=== PATIENT | male | born 1995 | race Caucasian/White ===

== ENCOUNTER 2016-11-11 12:31 | Emergency (ER) | payer OTHER ==
--- NOTE | 2016-11-11 13:40 | EDDOCDS ---
Physician Documentation [facility] Name: Ricky Young Age: 20 yrs Sex: Male : 1995 Arrival Date: 11/11/2016 Time: 12:31 Bed Triage 2 Private MD: Cj Mcgovern Disposition: 11/11/16 13:35 Discharged to Home/Self Care. Impression: Local infection of the skin and subcutaneous tissue, unspecified - Left Great Toe Paronychia. - Condition is Stable. - Prescriptions for Keflex 500 mg Oral Capsule - take 1 capsule by ORAL route every 8 hours for 10 days; 30 capsule. Naprosyn 500 mg Oral Tablet - take 1 tablet by ORAL route 2 times per day take with food; 30 tablet. - Medication Reconciliation, Local Pharmacy Hours form. - Follow up: Cj Mcgovern; When: 1 - 2 days; Reason: Recheck today's complaints, Continuance of care. Follow up: Emergency Department; Reason: Worsening of conditions. - Problem is new. - Symptoms are unchanged. Historical: - Allergies: no known allergies; - Home Meds: 1. none - PMHx: GERD; - PSHx: none; - Social history: Smoking status: Patient states was never smoker of tobacco. No barriers to communication noted, The patient speaks fluent Uzbek, Speaks appropriately for age. - Family history: Not pertinent. - : The pt / caregiver states he / she is not on anticoagulants. Home medication list is obtained from the patient. - Exposure Risk Screening:: None identified. Vital Signs: 11/11 12:33 BP 108 / 67 RA Sitting (auto/reg); Pulse 89; Resp 18; Temp 98.1(O); Pulse Ox 100% on jrd R/A; Weight 45.36 kg / 100 lbs (R); Height 5 ft. 2 in. (157.48 cm); Pain 3/10; 12:33 Body Mass Index 18.29 (45.36 kg, 157.48 cm) jrd Signatures: Kinga Yung PA-C PA-C ef1 Tameka Seymour,RN RN pml Joceline MárquezRN RN js13 MTDD
--- NOTE | 2016-11-11 13:40 | EDDOCDS ---
Nurse's Notes [facility] Name: Ricky Young Age: 20 yrs Sex: Male : 1995 Arrival Date: 11/11/2016 Time: 12:31 Bed Triage 2 Private MD: Cj Mcgovern Diagnosis: Local infection of the skin and subcutaneous tissue, unspecified-Left Great Toe Paronychia Presentation: 11/11 12:35 Presenting complaint: Friend states: redness and swelling to toe for about a month. [facility] Adult Sepsis Screening: The patient does not have new or worsening altered mentation. Patient's respiratory rate is less than 22. Systolic blood pressure is greater than 100. Patient has a qSOFA score of 0- Negative Sepsis Screen. Suicide/Homicide risk assessment- the patient denies having any suicidal and/or homicidal ideations and does not present with any other emotional, behavioral or mental health complaints. Status: Patient is not a atm servicer or dependent. Transition of care: patient was not received from another setting of care. 12:35 Acuity: EVELYN Level 5 [facility] 12:35 Method Of Arrival: Walkin/Carried/Asstd [facility] Triage Assessment: 12:36 General: Appears in no apparent distress, comfortable. Pain: Location: Left first pml toenail Pain currently is 3 out of 10 on a pain scale. HIV screening NA for this visit Offered previously. Historical: - Allergies: no known allergies; - Home Meds: 1. none - PMHx: GERD; - PSHx: none; - Social history: Smoking status: Patient states was never smoker of tobacco. No barriers to communication noted, The patient speaks fluent Estonian, Speaks appropriately for age. - Family history: Not pertinent. - : The pt / caregiver states he / she is not on anticoagulants. Home medication list is obtained from the patient. - Exposure Risk Screening:: None identified. Screenin:36 Screening information is obtained from the patient. Fall risk: No risks identified. js13 Assistance ADL's: requires no assistance with activities of daily living. Abuse/DV Screen: The patient / caregiver reports he/she is: not in a situation that causes fear, pain or injury. Nutritional screening: No deficits noted. Advance Directives: There is no active DNR order. home support is adequate. Vital Signs: 12:33 BP 108 / 67 RA Sitting (auto/reg); Pulse 89; Resp 18; Temp 98.1(O); Pulse Ox 100% on jrd R/A; Weight 45.36 kg (R); Height 5 ft. 2 in. (157.48 cm); Pain 3/10; 12:33 Body Mass Index 18.29 (45.36 kg, 157.48 cm) jrd Vitals: 12:33 Log In Time: November 11, 2016 at 12:10. jrd ED Course: 12:32 Patient visited by Jim Parker PCA. jrd 12:32 Patient moved to Waiting jrd 12:33 Cj Mcgovern is Private Physician. jrd 12:34 Patient visited by Jim Parker PCA. jrd 12:34 Patient moved to Pre RCE jrd 12:35 Triage Initiated pml 12:36 Patient visited by Tameka Seymour RN. pml 12:58 Patient moved to Triage 2 ml6 13:18 Kinga Yung PA-C [facility]. ef1 13:18 Traci Medina MD is Attending Physician. ef1 13:18 Patient visited by Kinga Yung PA-C. ef1 13:35 Cj Mcgovern is Referral Physician. ef1 13:36 The patient / caregiver is instructed regarding the plan of care and ED course. js13 13:36 No IV's were initiated during this patient's visit. No procedures done that require js13 assistance. Order Results: There are currently no results for this order. Outcome: 13:35 Discharge ordered by Provider. ef1 13:36 Discharge Assessment: Patient awake, alert and oriented x 3. No cognitive and/or js13 functional deficits noted. Patient verbalized understanding of disposition instructions. patient administered narcotics - no. The following High Risk Discharge criteria are identified: None. Discharged to home ambulatory, with friend. Condition: stable. 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 medication usage, Demonstrated understanding of instructions, medications, Pt was receptive of discharge instructions/ teaching. Prescriptions given X 2. No special radiology studies were completed. Property :Personal belongings accompany Pt. 13:39 Patient left the ED. js13 Signatures: Kinga Yung PA-C PA-C ef1 Shimon Arredondo RN RN ml6 Tameka Seymour RN RN pml Joceline Márquez,RN RN js13 Jim Parker, RESTORATIVE CARE TECHNICIAN RESTORATIVE CARE TECHNICIAN jrd MTDD
--- NOTE | 2016-11-13 14:40 | EDDOCDS ---
Physician Documentation [facility] Name: Ricky Young Age: 20 yrs Sex: Male : 1995 Arrival Date: 11/11/2016 Time: 12:31 Bed Triage 2 Private MD: Cj Mcgovern Disposition: 11/11/16 13:35 Discharged to Home/Self Care. Impression: Local infection of the skin and subcutaneous tissue, unspecified - Left Great Toe Paronychia. - Condition is Stable. - Prescriptions for Keflex 500 mg Oral Capsule - take 1 capsule by ORAL route every 8 hours for 10 days; 30 capsule. Naprosyn 500 mg Oral Tablet - take 1 tablet by ORAL route 2 times per day take with food; 30 tablet. - Medication Reconciliation, Local Pharmacy Hours form. - Follow up: Cj Mcgovern; When: 1 - 2 days; Reason: Recheck today's complaints, Continuance of care. Follow up: Emergency Department; Reason: Worsening of conditions. - Problem is new. - Symptoms are unchanged. Historical: - Allergies: no known allergies; - Home Meds: 1. none - PMHx: GERD; - PSHx: none; - Social history: Smoking status: Patient states was never smoker of tobacco. No barriers to communication noted, The patient speaks fluent Tongan, Speaks appropriately for age. - Family history: Not pertinent. - : The pt / caregiver states he / she is not on anticoagulants. Home medication list is obtained from the patient. - Exposure Risk Screening:: None identified. Vital Signs: 11/11 12:33 BP 108 / 67 RA Sitting (auto/reg); Pulse 89; Resp 18; Temp 98.1(O); Pulse Ox 100% on jrd R/A; Weight 45.36 kg / 100 lbs (R); Height 5 ft. 2 in. (157.48 cm); Pain 3/10; 12:33 Body Mass Index 18.29 (45.36 kg, 157.48 cm) jrd MDM: 13:46 Financial registration complete. mm15 13:46 [facility] Payment Agreement was scanned into [employer] and attached to record. mm15 14:48 T-Sheet-- Draft Copy was scanned into [employer] and attached to record. gb Signatures: Yolie Grant, Reg Reg gb Kinga Yung, PA-C PA-C ef1 Tameka Seymour,RN RN pml Joceline MárquezRN RN js13 Taran Gomez mm15 The chart was reviewed and I authenticate all verbal orders and agree with the evaluation and treatment provided.Attachments: 13:46 [facility] Payment Agreement mm15 14:48 T-Sheet-- Draft Copy gb Chart Complete MTDD
--- NOTE | 2016-11-13 14:40 | EDDOCDS ---
Nurse's Notes [facility] Name: Ricky Young Age: 20 yrs Sex: Male : 1995 Arrival Date: 11/11/2016 Time: 12:31 Bed Triage 2 Private MD: Cj Mcgovern Diagnosis: Local infection of the skin and subcutaneous tissue, unspecified-Left Great Toe Paronychia Presentation: 11/11 12:35 Presenting complaint: Friend states: redness and swelling to toe for about a month. [facility] Adult Sepsis Screening: The patient does not have new or worsening altered mentation. Patient's respiratory rate is less than 22. Systolic blood pressure is greater than 100. Patient has a qSOFA score of 0- Negative Sepsis Screen. Suicide/Homicide risk assessment- the patient denies having any suicidal and/or homicidal ideations and does not present with any other emotional, behavioral or mental health complaints. Status: Patient is not a family service center director or dependent. Transition of care: patient was not received from another setting of care. 12:35 Acuity: EVELYN Level 5 [facility] 12:35 Method Of Arrival: Walkin/Carried/Asstd [facility] Triage Assessment: 12:36 General: Appears in no apparent distress, comfortable. Pain: Location: Left first pml toenail Pain currently is 3 out of 10 on a pain scale. HIV screening NA for this visit Offered previously. Historical: - Allergies: no known allergies; - Home Meds: 1. none - PMHx: GERD; - PSHx: none; - Social history: Smoking status: Patient states was never smoker of tobacco. No barriers to communication noted, The patient speaks fluent Bengali, Speaks appropriately for age. - Family history: Not pertinent. - : The pt / caregiver states he / she is not on anticoagulants. Home medication list is obtained from the patient. - Exposure Risk Screening:: None identified. Screenin:36 Screening information is obtained from the patient. Fall risk: No risks identified. js13 Assistance ADL's: requires no assistance with activities of daily living. Abuse/DV Screen: The patient / caregiver reports he/she is: not in a situation that causes fear, pain or injury. Nutritional screening: No deficits noted. Advance Directives: There is no active DNR order. home support is adequate. Vital Signs: 12:33 BP 108 / 67 RA Sitting (auto/reg); Pulse 89; Resp 18; Temp 98.1(O); Pulse Ox 100% on jrd R/A; Weight 45.36 kg (R); Height 5 ft. 2 in. (157.48 cm); Pain 3/10; 12:33 Body Mass Index 18.29 (45.36 kg, 157.48 cm) jrd Vitals: 12:33 Log In Time: November 11, 2016 at 12:10. jrd ED Course: 12:32 Patient visited by Jim Parker PCA. jrd 12:32 Patient moved to Waiting jrd 12:33 Cj Mcgovern is Private Physician. jrd 12:34 Patient visited by Jim Parker PCA. jrd 12:34 Patient moved to Pre RCE jrd 12:35 Triage Initiated pml 12:36 Patient visited by Tameka Seymour RN. pml 12:58 Patient moved to Triage 2 ml6 13:18 Kinga Yung PA-C is PHCP. ef1 13:18 Traci Medina MD is Attending Physician. ef1 13:18 Patient visited by Kinga Yung PA-C. ef1 13:35 Cj Mcgovern is Referral Physician. ef1 13:36 The patient / caregiver is instructed regarding the plan of care and ED course. js13 13:36 No IV's were initiated during this patient's visit. No procedures done that require js13 assistance. 13:46 [facility] [place] Agreement was scanned into [employer] and attached to record. mm15 14:48 T-Sheet-- Draft Copy was scanned into [employer] and attached to record. gb Order Results: There are currently no results for this order. Outcome: 13:35 Discharge ordered by Provider. ef1 13:36 Discharge Assessment: Patient awake, alert and oriented x 3. No cognitive and/or js13 functional deficits noted. Patient verbalized understanding of disposition instructions. patient administered narcotics - no. The following High Risk Discharge criteria are identified: None. Discharged to home ambulatory, with friend. Condition: stable. 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 medication usage, Demonstrated understanding of instructions, medications, Pt was receptive of discharge instructions/ teaching. Prescriptions given X 2. No special radiology studies were completed. Property :Personal belongings accompany Pt. 13:39 Patient left the ED. js13 Signatures: Yolie Grant, Reg Reg gb Dilshad, Kinga, PA-C PAAliciaC ef1 Shimon Arredondo, RN RN ml6 Tameka Seymour,RN RN pml Joceline MárquezRN RN js13 Taran Gomez mm15 Jim Parker, [employer] GAME BOX PERSON jrd Chart Complete MTDD
--- NOTE | 2016-11-13 14:40 | EDDOCDS ---
Physician Documentation [facility] Name: Ricky Young Age: 20 yrs Sex: Male : 1995 Arrival Date: 11/11/2016 Time: 12:31 Bed Triage 2 Private MD: Cj Mcgovern Disposition: 11/11/16 13:35 Discharged to Home/Self Care. Impression: Local infection of the skin and subcutaneous tissue, unspecified - Left Great Toe Paronychia. - Condition is Stable. - Prescriptions for Keflex 500 mg Oral Capsule - take 1 capsule by ORAL route every 8 hours for 10 days; 30 capsule. Naprosyn 500 mg Oral Tablet - take 1 tablet by ORAL route 2 times per day take with food; 30 tablet. - Medication Reconciliation, Local Pharmacy Hours form. - Follow up: Cj Mcgovern; When: 1 - 2 days; Reason: Recheck today's complaints, Continuance of care. Follow up: Emergency Department; Reason: Worsening of conditions. - Problem is new. - Symptoms are unchanged. Historical: - Allergies: no known allergies; - Home Meds: 1. none - PMHx: GERD; - PSHx: none; - Social history: Smoking status: Patient states was never smoker of tobacco. No barriers to communication noted, The patient speaks fluent Kosovan, Speaks appropriately for age. - Family history: Not pertinent. - : The pt / caregiver states he / she is not on anticoagulants. Home medication list is obtained from the patient. - Exposure Risk Screening:: None identified. Vital Signs: 11/11 12:33 BP 108 / 67 RA Sitting (auto/reg); Pulse 89; Resp 18; Temp 98.1(O); Pulse Ox 100% on jrd R/A; Weight 45.36 kg / 100 lbs (R); Height 5 ft. 2 in. (157.48 cm); Pain 3/10; 12:33 Body Mass Index 18.29 (45.36 kg, 157.48 cm) jrd MDM: 13:46 Financial registration complete. mm15 13:46 [facility] Payment Agreement was scanned into [employer] and attached to record. mm15 14:48 T-Sheet-- Draft Copy was scanned into [employer] and attached to record. gb Signatures: Yolie Grant, Reg Reg gb Kinga Yung, PA-C PA-C ef1 Tameka Seymour,RN RN pml Joceline MárquezRN RN js13 Taran Gomez mm15 The chart was reviewed and I authenticate all verbal orders and agree with the evaluation and treatment provided.Attachments: 13:46 [facility] Payment Agreement mm15 14:48 T-Sheet-- Draft Copy gb Chart Complete MTDD
== END 2016-11-11 13:39 | disposition home or self-care (01) ==
LOC: M ED 12:31
DX: L03.032 Cellulitis of left toe (principal); K21.9 Gastro-esophageal reflux disease without esophagitis

== ENCOUNTER → 2016-12-10 | Outpatient (CLI) | payer OTHER ==
[2016-12-10 12:19] LABS: BASO % 0.8 % (0.0-1.0); EOS % 1.2 % (0.0-3.0); LARGE UNSTAINED CELL # 0.2 K/mm3 (0.0-0.4); LARGE UNSTAINED CELL % 4.2 % (0.0-4.0); LYMPH # 1.5 K/mm3 (1.5-6.5); LYMPH % 30.4 % (24.0-44.0); MEAN CORPUSCULAR HEMOGLOBIN 30.9 pg (27.0-33.0); MEAN CORPUSCULAR HGB CONC 33.8 g/dl (32.0-36.5); MEAN CORPUSCULAR VOLUME 91.4 fl (80.0-96.0); MONO # 0.4 K/mm3 (0.0-0.8); NEUTROPHILS # 2.4 K/mm3 (1.8-7.7); NEUTROPHILS % 55.4 % (36.0-66.0); PLATELET COUNT, AUTOMATED 210 k/mm3 (150-450); RED CELL DISTRIBUTION WIDTH 11.7 % (11.5-14.5); WHITE BLOOD COUNT 4.4 K/mm3 (4.0-10.0)
[2016-12-10 12:44] LABS: ALBUMIN 4.2 GM/DL (3.2-5.2); ALKALINE PHOSPHATASE 126 U/L (45-117); ALT/SGPT 41 U/L (12-78); ANION GAP 5 MEQ/L (8-16); AST/SGOT 21 U/L (15-37); BILIRUBIN,TOTAL 0.6 MG/DL (0.2-1.0); BLOOD UREA NITROGEN 12 MG/DL (7-18); CALCIUM LEVEL 10.1 MG/DL (8.5-10.1); CARBON DIOXIDE LEVEL 32 MEQ/L (21-32); CHLORIDE LEVEL 103 MEQ/L (98-107); CREATININE FOR GFR 0.67 MG/DL (0.70-1.30); GLOMERULAR FILTRATION RATE > 60.0 (>60); GLUCOSE, FASTING 95 MG/DL (70-105); POTASSIUM SERUM 4.7 MEQ/L (3.5-5.1); SODIUM LEVEL 140 MEQ/L (136-145)
== END ==
LOC: M LAB 11:21
PROVIDERS: ATTEND Family Medicine Addiction Medicine
DX: K30 Functional dyspepsia (principal)

== ENCOUNTER 2024-07-26 10:54 | Emergency (ER) | payer OTHER ==
[~2024-07-26] VITALS: Ht 157.5 cm; Wt 53.4 kg
[2024-07-26] MEDS: ASPIRIN 81MG CHEW TABLET PO ONE (12:46)
[2024-07-26] MEDS ORDERED: MYLA1SUS PO (12:55)
[2024-07-26 13:09] LABS: BASO # 0.1 10^3/uL (0.0-0.2); EOS # 0.1 10^3/uL (0.0-0.5); EOS % 0.7 % (0.0-3.0); HEMATOCRIT 42.7 % (42.0-52.0); HEMOGLOBIN 14.4 g/dl (13.5-17.5); LYMPH # 1.6 10^3/uL (1.5-5.0); LYMPH % 19.8 % (24.0-44.0); MEAN CORPUSCULAR HGB CONC 33.7 g/dl (32.0-36.5); MONO # 0.9 10^3/uL (0.0-0.8); MONO % 10.4 % (2.0-8.0); NEUTROPHILS # 5.6 10^3/uL (1.5-8.5); PLATELET COUNT, AUTOMATED 265 10^3/uL (150-450); WHITE BLOOD COUNT 8.2 10^3/uL (4.0-10.0)
[2024-07-26 13:41] LABS: CK-MB VALUE MASS < 1.0 NG/ML (<3.6)
[2024-07-26 13:43] LABS: ALBUMIN 4.1 G/DL (3.2-5.2); ALKALINE PHOSPHATASE 117 U/L (40-129); ALT/SGPT 13 U/L (7.0-40); AST/SGOT < 8 U/L (<34); BILIRUBIN,DIRECT 0.3 MG/DL (<0.4); BILIRUBIN,TOTAL 0.7 MG/DL (0.3-1.2); BLOOD UREA NITROGEN 11 MG/DL (9-23); CALCIUM LEVEL 11.5 MG/DL (8.5-10.1); CARBON DIOXIDE LEVEL 31 MMOL/L (20-31); CHLORIDE LEVEL 104 MMOL/L (98-107); CPK CREATINE PHOSPHOKINASE 41 U/L (46-171); CREATININE FOR GFR 0.93 MG/DL (0.70-1.30); GLOMERULAR FILTRATION RATE > 60.0 (>60); GLUCOSE, FASTING 98 MG/DL (60-100); MB/CK RELATIVE INDEX 2.43 (< OR =4); POTASSIUM SERUM 4.1 MMOL/L (3.5-5.1); SODIUM LEVEL 143 MMOL/L (136-145)
[2024-07-26] MEDS ORDERED: PEPC1TAB5 PO (13:48)
[2024-07-26 14:03] VITALS: BP 119/71; TEMP 97.8; O2SAT 97
== END 2024-07-26 14:11 | disposition home or self-care (01) ==
LOC: M ED 10:54
DX: R07.89 Other chest pain (principal)

== ENCOUNTER → 2025-01-11 | Outpatient (REF) | payer OTHER ==
[~2025-01-11] MED LIST: MYLA1SUS PO; PEPC1TAB5 PO
[2025-01-11 19:08] LABS: BASO # 0.1 10^3/uL (0.0-0.2); EOS # 0.1 10^3/uL (0.0-0.5); EOS % 1.7 % (0.0-3.0); HEMATOCRIT 43.1 % (42.0-52.0); HEMOGLOBIN 14.3 g/dl (13.5-17.5); LYMPH # 1.7 10^3/uL (1.5-5.0); LYMPH % 24.9 % (24.0-44.0); MEAN CORPUSCULAR HEMOGLOBIN 30.2 pg (27.0-33.0); MEAN CORPUSCULAR HGB CONC 33.2 g/dl (32.0-36.5); MEAN CORPUSCULAR VOLUME 90.9 fl (80.0-96.0); MONO # 0.7 10^3/uL (0.0-0.8); MONO % 9.5 % (2.0-8.0); NEUTROPHILS # 4.4 10^3/uL (1.5-8.5); NEUTROPHILS % 62.8 % (36.0-66.0); PLATELET COUNT, AUTOMATED 246 10^3/uL (150-450); RED BLOOD COUNT 4.74 10^6/uL (4.30-6.10)
[2025-01-11 19:21] LABS: ALBUMIN 4.3 G/DL (3.2-5.2); ALKALINE PHOSPHATASE 112 U/L (40-129); ALT/SGPT 25 U/L (7.0-40); AST/SGOT 16 U/L (<34); BILIRUBIN,TOTAL 0.6 MG/DL (0.3-1.2); BLOOD UREA NITROGEN 14 MG/DL (9-23); CALCIUM LEVEL 10.7 MG/DL (8.5-10.1); CARBON DIOXIDE LEVEL 33 MMOL/L (20-31); CHLORIDE LEVEL 102 MMOL/L (98-107); CHOLESTEROL LEVEL 99 MG/DL (<200); CHOLESTEROL RISK RATIO 2.09 (<5); CREATININE FOR GFR 0.84 MG/DL (0.70-1.30); GLOMERULAR FILTRATION RATE > 90.0 (>60); GLUCOSE, FASTING 85 MG/DL (60-100); HDL CHOLESTEROL 47.2 MG/DL (>40); MAGNESIUM LEVEL 2.2 MG/DL (1.8-2.4); NON-HDL-C 51.8 MG/DL; POTASSIUM SERUM 4.5 MMOL/L (3.5-5.1); SODIUM LEVEL 142 MMOL/L (136-145); TOTAL PROTEIN 7.1 G/DL (5.7-8.2); TRIGLYCERIDES LEVEL 79 MG/DL (<150)
[2025-01-11 19:24] LABS: FREE T4 1.09 NG/DL (0.89-1.76)
[2025-01-11 19:25] LABS: FOLATE 10.9 NG/ML (>5.4); TOTAL 25(OH) VITAMIN D 39.8 NG/ML (20.0-100.0); VITAMIN B12 LEVEL 891 PG/ML (211-911)
[2025-01-11 19:46] LABS: HEMOGLOBIN A1c 5.3 % (4.0-6.0)
== END ==
LOC: M LAB REF 17:14
PROVIDERS: ATTEND Nurse Practitioner Family
DX: E55.9 Vitamin D deficiency, unspecified (principal); R63.6 Underweight

== ENCOUNTER → 2025-02-08 | Outpatient (REF) | payer OTHER ==
[2025-02-08 13:28] LABS: BLOOD UREA NITROGEN 20 MG/DL (9-23); CALCIUM LEVEL 10.8 MG/DL (8.5-10.1); CARBON DIOXIDE LEVEL 31 MMOL/L (20-31); CHLORIDE LEVEL 102 MMOL/L (98-107); CREATININE FOR GFR 0.96 MG/DL (0.70-1.30); GLOMERULAR FILTRATION RATE > 90.0 (>60); GLUCOSE, FASTING 89 MG/DL (60-100); POTASSIUM SERUM 4.7 MMOL/L (3.5-5.1); PTH INTACT 19.6 PG/ML (18.5-88.0); SODIUM LEVEL 142 MMOL/L (136-145)
== END ==
LOC: M LAB REF 12:09
PROVIDERS: ATTEND Nurse Practitioner Family
DX: E83.52 Hypercalcemia (principal)

== ENCOUNTER → 2025-07-06 | Outpatient (CLI) | payer OTHER ==
[2025-07-06 10:53] LABS: BASO # 0.1 10^3/uL (0.0-0.2); BASO % 1.0 % (0.0-1.0); EOS # 0.1 10^3/uL (0.0-0.5); EOS % 1.0 % (0.0-3.0); LYMPH # 1.9 10^3/uL (1.5-5.0); LYMPH % 26.9 % (24.0-44.0); MONO # 0.6 10^3/uL (0.0-0.8); MONO % 8.6 % (2.0-8.0); NEUTROPHILS # 4.4 10^3/uL (1.5-8.5); NEUTROPHILS % 62.4 % (36.0-66.0); PLATELET COUNT, AUTOMATED 238 10^3/uL (150-450)
[2025-07-06 11:23] LABS: IRON (FE) 87 UG/DL (65-175); PERCENT SATURATION 29.6 % (19.7-50.0)
[2025-07-06 11:24] LABS: CALCIUM LEVEL 11.0 MG/DL (8.5-10.1); CARBON DIOXIDE LEVEL 32 MMOL/L (20-31); CHLORIDE LEVEL 101 MMOL/L (98-107); CREATININE FOR GFR 0.91 MG/DL (0.70-1.30); GLOMERULAR FILTRATION RATE > 90.0 (>60); POTASSIUM SERUM 4.3 MMOL/L (3.5-5.1); SODIUM LEVEL 141 MMOL/L (136-145)
[2025-07-07 10:17] LABS: T P ELECTROPHORESIS SO 7.0 g/dL (6.1-8.1)
[2025-07-08 13:48] LABS: PROTEIN CREATININE RATIO 74 mg/g creat (25-148); T PROTEIN CREATININE RATIO 0.074 (0.025-0.148); UPEP CREATININE 68 mg/dL (20-320); UPEP TOTAL PROTEIN 5 mg/dL (5-25)
[2025-07-08 14:23] LABS: UPEP ALBUMIN 100 %; URINE ALPHA 1 GLOBULIN 0 %; URINE ALPHA 2 GLOBULIN 0 %; URINE BETA GLOBULIN 0 %; URINE GAMMA GLOBULIN 0 %
[2025-07-09 13:18] LABS: ALBUMIN SPEP 4.5 g/dL (3.8-4.8); ALPHA-1-GLOBULINS SO 0.3 g/dL (0.2-0.3); ALPHA-2-GLOBULINS SO 0.7 g/dL (0.5-0.9); BETA 2 GLOBULIN 0.4 g/dL (0.2-0.5); BETA-GLOBULIN SO 0.4 g/dL (0.4-0.6); GAMMA GLOBULINS SO 0.8 g/dL (0.8-1.7)
== END ==
LOC: M LAB 09:09
PROVIDERS: ATTEND Nurse Practitioner Family
DX: E83.52 Hypercalcemia (principal); R23.1 Pallor; R63.6 Underweight